=== PATIENT | male | born 1985 | race Caucasian/White ===

== ENCOUNTER 2017-10-24 21:04 | Emergency (ER) | payer SELFPAY, MEDICAID | END 2017-10-24 23:45 | disposition left against medical advice (07) | LOC: E/R 21:04 | DX: Z53.21 Procedure and treatment not carried out due to patient leaving prior to being seen by health care provider (principal) ==

== ENCOUNTER 2017-10-26 19:07 | Emergency (ER) | payer MEDICAID | END 2017-10-26 21:21 | disposition home or self-care (01) | LOC: E/R 21:21 | DX: H65.02 Acute serous otitis media, left ear (principal); H60.502 Unspecified acute noninfective otitis externa, left ear | CPT/HCPCS: 99283; Z7502 ==

== ENCOUNTER 2017-11-28 10:25 | Emergency (ER) | payer MEDICAID | END 2017-11-28 14:48 | disposition home or self-care (01) | LOC: FTE 10:25 | DX: S62.115A Nondisplaced fracture of triquetrum [cuneiform] bone, left wrist, initial encounter for closed fracture (principal); R51 Headache; W18.39XA Other fall on same level, initial encounter; Y92.9 Unspecified place or not applicable | CPT/HCPCS: 70450; 70486; 73110-LT; 99285-25 ==